=== PATIENT | female | born 1965 | race Two or more races ===

== ENCOUNTER → 2018-04-14 | Outpatient (CLI) | payer OTHER ==
[2016-12-26 16:47] VITALS: BP 122/60
[~2018-04-14] MED LIST: ATEN25TA PO; OMEP40CA5 PO
--- NOTE | 2018-04-16 10:14 | KCIC ---
EXAM: Bilateral screening mammogram. HISTORY: 52-year-old female presents for screening mammography. TECHNIQUE: Full-field digital craniocaudal and mediolateral oblique views of both breasts are obtained for evaluation. Computer aided detection with [employer] software version 9.3 was applied. COMPARISON: 05/31/2015 BREAST PARENCHYMAL DENSITY: Level B - Scattered fibroglandular densities. FINDINGS: There is no new suspicious mas, microcalcification or region of architectural distortion. IMPRESSION: BI-RADS Category 2: Benign finding(s). RECOMMENDATION: Annual mammography is recommended. If your mammogram demonstrates that you have dense breast tissue, which could hide abnormalities, and if you have other risk factors for breast cancer that have been identified, you might benefit from supplemental screening tests that may be suggested by your ordering physician. Dense breast tissue, in and of itself, is a relatively common condition. This information is not provided to cause undue concern, but rather to raise your awareness and to promote discussion with your physician regarding the presence of other risk factors, in addition to dense breast tissue. A report of your mammography results will be sent to you and your physician. You should contact your physician if you have any questions or concerns regarding this report. Mammography is a sensitive method for finding small breast cancers, but it does not detect them all and is not a substitute for careful clinical examination. A negative mammogram does not negate a clinically suspicious finding and should not result in delay in biopsying a clinically suspicious abnormality. PQRS compliance statement - Patient information was entered into a reminder system with a target due date for the next mammogram. "Our facility is accredited by the [employer] Mammography [employer]." Electronically signed by: Maris Goodman MD (04/16/2018 10:11 AM) [id number]
== END | disposition home or self-care (01) ==
LOC: KCIC MAMMO 16:58
PROVIDERS: ATTEND Family Medicine
DX: Z12.31 Encounter for screening mammogram for malignant neoplasm of breast (principal)
CPT/HCPCS: 77067

== ENCOUNTER → 2020-01-14 | Outpatient (CLI) | payer OTHER ==
[2016-12-26 16:47] VITALS: BP 122/60
[~2020-01-14] MED LIST changes: +OMEP40CA45 PO; -OMEP40CA5 PO
--- NOTE | 2020-01-14 18:10 | KCIC ---
Bilateral digital screening mammograms: Reason for examination: Routine screening. Comparison is made to previous studies dated 04/14/2018 and 08/06/2016. Interpretation was made with the benefit of CAD. The skin and nipples show no abnormalities. No abnormal axillary lymph nodes are seen. The breast parenchyma shows scattered fibroglandular density. (Breast density: Category B.) There continues to be a small nodule consistent with an intramammary lymph node at the 2:00 B position of the left breast which is stable. There are no new dominant masses, suspicious calcifications or architectural distortions. Impression: No evidence of malignancy. Recommend routine screening. BI-RADS Category 2: Benign. "Our facility is accredited by the [employer] Mammography [employer]." This patient's information has been entered into a reminder system for the patient to be notified with the results of her examination and a target date for the next mammogram. Electronically signed by: Lisa Dickson MD (01/14/2020 6:07 PM) [id number]
== END | disposition home or self-care (01) ==
LOC: KCIC MAMMO 10:49
PROVIDERS: ATTEND Family Medicine
DX: Z12.31 Encounter for screening mammogram for malignant neoplasm of breast (principal); N64.89 Other specified disorders of breast
CPT/HCPCS: 77067

== ENCOUNTER → 2021-01-25 | Outpatient (CLI) | payer OTHER ==
[2016-12-26 16:47] VITALS: BP 122/60
[~2021-01-25] MED LIST changes: -OMEP40CA45 PO; +OMEP40CA7 PO
--- NOTE | 2021-01-25 08:38 | RAD ---
EXAMINATION: US ABDOMEN COMPLETE 01/25/2021 7:37 AM INDICATION: Upper abdominal pain TECHNIQUE: Hatfield scale and color Doppler ultrasound images of the right upper quadrant were obtained. COMPARISON: None. FINDINGS: Liver: The liver is normal in size measuring 18 cm in length. There is diffusely increased hepatic ec hogenicity. No focal liver lesion. Gallbladder: The gallbladder is normal in caliber. No cholelithiasis or sludge. The gallbladder wa ll is normal in thickness. Bile ducts: The common bile duct is normal measuring 4 mm. No intrahepatic biliary duct dilatation. Kidneys: The right kidney measures 11.3 x 5.1 x 4.4 cm. The left kidney measures 11.7 x 4.6 x 6.0 cm. Normal cortical thickness and echogenicity. No hydronephrosis. Spleen: The spleen is borderline enlarged measuring 14 cm. Other: Abdominal aorta and inferior vena cava are normal where visualized. The pancreas is normal wh ere visualized. IMPRESSION: 1. Hepatic steatosis. 2. Borderline splenomegaly. Electronically signed by: Maryam Louis MD (01/25/2021 8:35 AM) [id number]
== END ==
LOC: US 07:27
PROVIDERS: ATTEND Family Medicine
DX: K76.0 Fatty (change of) liver, not elsewhere classified (principal); R16.1 Splenomegaly, not elsewhere classified
CPT/HCPCS: 76700

== ENCOUNTER → 2021-07-19 | Outpatient (CLI) | payer OTHER ==
[2016-12-26 16:47] VITALS: BP 122/60
--- NOTE | 2021-07-19 16:16 | KCIC ---
EXAM: Pelvis and right hip, 2 views. HISTORY: Pain after climbing stairs. COMPARISON: None. FINDINGS: A frontal view the pelvis and frog-leg view the right hip are obtained. There is no fractur e, dislocation or subluxation. The femoral heads are normal in configuration. There is minimal degene rative marginal acetabular spurring and subchondral cyst formation. IMPRESSION: No acute osseous finding. Minimal bilateral hip osteoarthritis. Electronically signed by: Maris Goodman MD (07/19/2021 4:14 PM) [id number]
== END ==
LOC: KCIC 15:51
PROVIDERS: ATTEND Family Medicine
DX: M16.0 Bilateral primary osteoarthritis of hip (principal); M76.891 Other specified enthesopathies of right lower limb, excluding foot; M25.851 Other specified joint disorders, right hip
CPT/HCPCS: 73501

== ENCOUNTER → 2021-08-10 | Outpatient (CLI) | payer OTHER, BC ==
[2016-12-26 16:47] VITALS: BP 122/60
[~2021-08-10] MED LIST changes: +BUPIVACAINE MPF 0.5% 10 ML VIAL. INT ART ONE; +IOHEXOL 300 MG/ML 50 ML VIAL. INT ART ONE; +LIDOCAINE 1% Multi-Dose 20 ML VIAL. ID ONE; +TRIAMCINOLONE ACETONIDE 40 MG/ML VIAL. INT ART ONE
--- NOTE | 2021-08-10 12:38 | KCIC ---
Exam Date: 08/10/2021 10:32 AM IR ARTHROCENTESIS ASP/INJ RIGHT Indication: Reason: Rt hip pain. Hx. arthritis / Spl. Instructions: 2mL Lidocaine,2mL Bupivicaine,80m g Kenalog, 5mL Omni 300,9 sec fl,2 images / History: . PROCEDURE NOTE FOR FLUOROSCOPIC GUIDED NEEDLE PLACEMENT, IODINATED CONTRAST INJECTION, AND RIGHT HIP THERAPEUTIC INJECTION HISTORY: RIGHT hip pain. PROCEDURE: A timeout was performed to ensure that the patient's name and procedure matched our inform ation. The staff personally assured that informed consent was obtained. After the risks, benefits a nd alternatives to the procedure were discussed with the patient, the patient elected to proceed. Und er fluoroscopic guidance, a suitable target was selected and the overlying skin was marked. The patie nt was prepped and draped in the usual sterile fashion. Local anesthesia with 5 cc lidocaine was give n. Under fluoroscopic guidance, a 20 gauge spinal needle was inserted through the anesthetized tract into the RIGHT hip joint. Intra-articular location was confirmed by a test injection of 0.5 cc Isovu e 200. The joint was then injected with a combination of 2cc Kenalog (40 mg/ml), 2 cc 0.5% Bupivacain e and 2 cc lidocaine . The patient tolerated the procedure very well without any immediate adverse consequence. COMPLICATIONS: None. Total fluoroscopy time: 9 seconds Fluoroscopic images: 0 IMPRESSION: Successful fluoroscopic-guided needle placement, iodinated contrast injection and RIGHT hip therapeutic injection. Electronically signed by: Vega Thacker MD (08/10/2021 12:35 PM) [id number] CUSTOM FIELD 1
== END | disposition home or self-care (01) ==
LOC: KCIC 10:06
PROVIDERS: ATTEND Orthopaedic Surgery Sports Medicine
DX: M16.11 Unilateral primary osteoarthritis, right hip (principal); K21.9 Gastro-esophageal reflux disease without esophagitis; Z98.51 Tubal ligation status; Z90.710 Acquired absence of both cervix and uterus; Z98.890 Other specified postprocedural states; Z79.899 Other long term (current) drug therapy; Z82.49 Family history of ischemic heart disease and other diseases of the circulatory system; Z83.3 Family history of diabetes mellitus; Z72.89 Other problems related to lifestyle
CPT/HCPCS: 20610; 77002; J3301; J3490; Q9967